=== PATIENT | male | born 2000 | race Caucasian/White ===

== ENCOUNTER 2022-11-19 00:44 | Emergency (ER) | payer SELFPAY ==
[~2022-11-19] VITALS: Ht 180.3 cm; Wt 168.3 kg
[2022-11-19 00:52] VITALS: BP 146/82
--- NOTE | 2022-11-19 02:27 | NUR ---
Dr. Lee examining patient.
[2022-11-19 02:43] VITALS: BP 132/82
--- NOTE | 2022-11-19 02:43 | NUR ---
Patient discharged with v/s stable. Written and verbal after care instructions given and explained. Patient verbalized understanding. Ambulatory with steady gait. All questions addressed prior to discharge. Advised to follow up with PMD.
== END 2022-11-19 02:43 | disposition home or self-care (01) ==
LOC: MED 00:44
DX: R07.89 Other chest pain (principal)
CPT/HCPCS: 93005; 99283